=== PATIENT | male | born 1940 | race Caucasian/White ===

== ENCOUNTER → 2017-11-19 | Outpatient (CLI) | payer MEDICARE, OTHER ==
--- NOTE | 2017-11-19 09:55 | Diagnostic Imaging Report ---
PROCEDURE: CT abdomen and pelvis without contrast. TECHNIQUE: Multiple contiguous axial images were obtained through the abdomen and pelvis without the use of intravenous contrast. INDICATION: Hematuria. No prior studies are available for comparison. The lung bases are clear. No discrete liver mass is identified. There appears to be a very small stone within the gallbladder. Pancreas and spleen are unremarkable. No adrenal mass is detected. There is a 3 mm nonobstructing calculus upper pole right kidney. Tiny cortical calcification left kidney seen. There is no hydronephrosis. No ureteral calculi or ureteral dilatation is detected. No bladder calculi are identified. The aorta is heavily calcified but nonaneurysmal. The small and large bowel loops are normal caliber. The appendix is unremarkable. There is sigmoid diverticulosis without evidence of acute diverticulitis. Prostate is moderately enlarged. There is a small amount of gas within the bladder, perhaps owing to recent instrumentation. There is a fat-containing left inguinal hernia. Bony structures are nonacute. IMPRESSION: 1. Small nonobstructing right renal calculus. 2. Cholelithiasis. 3. Uncomplicated diverticulosis. 4. Minimal gas within the bladder, perhaps owing to instrumentation. Clinical correlation is recommended. 5. Fat containing left inguinal hernia. Dictated by: Dictated on workstation # [id number]
== END ==
LOC: RAD 08:20
PROVIDERS: ATTEND Urology
DX: N20.0 Calculus of kidney (principal); K80.20 Calculus of gallbladder without cholecystitis without obstruction; K57.30 Diverticulosis of large intestine without perforation or abscess without bleeding; K40.90 Unilateral inguinal hernia, without obstruction or gangrene, not specified as recurrent
CPT/HCPCS: 74176

== ENCOUNTER → 2019-07-14 | Outpatient (CLI) | payer MEDICARE, OTHER ==
[2019-07-14 17:49] LABS: BASOPHILS % (AUTO) 0 % (0-10); EOSINOPHILS # (AUTO) 0.1 10^3/uL (0.0-0.3); EOSINOPHILS % (AUTO) 1 % (0-10); HEMATOCRIT 39 % (40-54); HEMOGLOBIN 11.9 G/DL (13.3-17.7); LYMPHOCYTES # (AUTO) 1.8 X 10^3 (1.0-4.0); LYMPHOCYTES % (AUTO) 24 % (12-44); MEAN CORPUSCULAR HEMOGLOBIN 24 PG (25-34); MEAN CORPUSCULAR HGB CONC 31 G/DL (32-36); MEAN CORPUSCULAR VOLUME 79 FL (80-99); MEAN PLATELET VOLUME 11.3 FL (7.4-10.4); MONOCYTES # (AUTO) 0.8 X 10^3 (0.0-1.0); MONOCYTES % (AUTO) 11 % (0-12); NEUTROPHILS # (AUTO) 4.8 X 10^3 (1.8-7.8); NEUTROPHILS % (AUTO) 64 % (42-75); PLATELET COUNT 274 10^3/uL (130-400); RED CELL DISTRIBUTION WIDTH 22.5 % (10.0-14.5); WHITE BLOOD COUNT 7.5 10^3/uL (4.3-11.0)
[2019-07-14 18:03] LABS: ALBUMIN 3.8 GM/DL (3.2-4.5); BILIRUBIN,TOTAL 0.3 MG/DL (0.1-1.0); CALCIUM 8.8 MG/DL (8.5-10.1); CREATININE SERUM 1.67 MG/DL (0.60-1.30); POTASSIUM 4.8 MMOL/L (3.6-5.0); TOTAL PROTEIN 7.1 GM/DL (6.4-8.2)
== END ==
LOC: LAB 17:21
PROVIDERS: ATTEND Nurse Practitioner Family
DX: D64.9 Anemia, unspecified (principal); R53.83 Other fatigue; I25.10 Atherosclerotic heart disease of native coronary artery without angina pectoris; R43.9 Unspecified disturbances of smell and taste
CPT/HCPCS: 36415; 80053; 82728; 85025; 85379; 86141

== ENCOUNTER 2021-12-11 03:58 | Emergency (ER) | payer MEDICARE, OTHER ==
[~2021-12-11] VITALS: Ht 177.8 cm; Wt 80.2 kg
--- NOTE | 2021-12-11 04:03 | ED Chest Pain ---
General Stated Complaint: CP Source: patient (PT IS POOR / LIMITED HISTORIAN ABOUT PMH. ), EMS History of Present Illness Date Seen by Provider: Dec 11, 2021 Time Seen by Provider: 04:02 Initial Comments PT ARRIVES VIA [facility] FROM [facility], BYPASSING [facility] C/O CHEST PAIN THAT WOKE HIM UP AT 0230 PAIN IS IN RIGHT LOWER/LATERAL CHEST NO RADIATION OF PAIN NOTHING WORSENS OR IMPROVES PAIN HAS NOT TAKEN ANYTHING FOR PAIN EMS GAVE 324 MG ASPIRIN. AND FENTANYL AND PAIN IS GONE. + "COLD SWEATS" + SHORTNESS OF BREATH + NAUSEA, NO VOMITING NO SWELLING IN LEGS/ FEET OR PAIN IN CALVES NO DIZZINESS OR SYNCOPE PT HAS HAD CA X 3 AND STENTS X 7. LAST CA AND STENTS WERE 02/2021--DONE AT [facility] WAS HOSPITALIZED IN [place]BER 2021 FOR CHF STATES THESE SYMPTOMS ARE THE SAME WITH PRIOR HEART ATTACKS. PT HAS CHRONIC ATRIAL FIBRILLATION AND IS PRESCRIBED PLAVIX AND ASPIRIN PT DEVELOPED DIVERTICULITIS, AND WAS PRESCRIBED CIPRO AND FLAGYL 11/25/20, AND HAS BEEN OFF HIS PLAVIX AND ASPIRIN SINCE Wednesday12/07/21IN ORDER TO HAVE A COLONOSCOPY NEXT WEDNESDAY. HAS FREQUENT PROBLEMS WITH GI BLEEDING, AND IS CURRENTLY HAVING BLACK STOOLS. PT DENIES COUGH OR FEVER PT HAS COPD BUT DOES NOT HAVE HOME O2 PT QUIT SMOKING IN 1999, AND QUIT ALCOHOL USE ABOUT THAT TIME WELL PT HAS NOT HAD COVID OR FLU VACCINES NO PRIOR VISITS HERE PCP: DR. MARY ANN WITH [facility] IN [place] PROFESSOR OF PSYCHOLOGY: DR. VELÁSQUEZ WITH [facility] Allergies and Home Medications Allergies Coded Allergies: No Known Drug Allergies (Unverified , 12/11/21) Patient Home Medication List Albuterol Sulfate (Ventolin Hfa) 1 Puff Puff, (Reported) Entered as Reported by: LIBAN KELLEY on 12/11/21409 Last Action: New Order Carvedilol (Carvedilol) 12.5 Mg Tablet, (Reported) Entered as Reported by: LIBAN KELLEY on 12/11/21409 Last Action: New Order Clopidogrel Bisulfate (Clopidogrel) 75 Mg Tablet, (Reported) Entered as Reported by: LIBAN KELLEY on 12/11/21409 Last Action: New Order Levothyroxine Sodium (Levothyroxine Sodium) 88 Mcg Tablet, (Reported) Entered as Reported by: LIBAN KELLEY on 12/11/21409 Last Action: New Order Lisinopril (Lisinopril) 2.5 Mg Tablet, (Reported) Entered as Reported by: LIBAN KELLEY on 12/11/21409 Last Action: New Order Potassium Chloride (K-Tab ER) 10 Meq Tablet.er, (Reported) Entered as Reported by: LIBAN KELLEY on 12/11/21409 Last Action: New Order Torsemide (Torsemide) 20 Mg Tablet, (Reported) Entered as Reported by: LIBAN KELLEY on 12/11/21409 Last Action: New Order Review of Systems Review of Systems Constitutional: see HPI, diaphoresis EENTM: No Symptoms Reported Respiratory: See HPI, Shortness of Air Cardiovascular: See HPI, Chest Pain; Denies Edema; Irregular Heart Rate (PT HAS CHRONIC ATRIAL FIBRILLATION); Denies Lightheadedness, Denies Palpitations; Syncope Gastrointestinal: See HPI; Denies Abdominal Pain; Nausea, Rectal Bleeding (BLACK STOOLS); Denies Vomiting; Other (RECENT DIVERTICULITIS, NO COMPLAINTS REGARDING THAT ILLNESS AT THIS TIME. ) Genitourinary: No Symptoms Reported Musculoskeletal: no symptoms reported Skin: no symptoms reported Psychiatric/Neurological: No Symptoms Reported Endocrine: No Symptoms Reported Hematologic/Lymphatic: No Symptoms Reported Past Lwvrjji-Aqcpbt-Cqfnex Hx Patient Social History Tobacco Use?: Yes Tobacco type used: Cigarettes Smoking Status: Former Smoker Substance use?: No Alcohol Use?: Yes Past Medical History Surgeries: Yes Abdominal, Bowel Surgery, Cardiac, Coronary Stent, Pacemaker Respiratory: Yes COPD Cardiac: Yes (PACEMAKER; STENTS X 7) Atrial Fibrillation, Coronary Artery Disease, Heart Attack, High Cholesterol, Hypertension Neurological: No Genitourinary: No Gastrointestinal: Yes (COLON RESECTION FOR DIVERTICULITIS) Gastroesophageal Reflux, Chronic Constipation, Diverticulosis Musculoskeletal: No Endocrine: Yes Hypothyroidsim HEENT: No Cancer: No Psychosocial: No Integumentary: No Blood Disorders: No Family Medical History SOCIAL HISTORY: -SMOKED 1 PPD, QUIT 1999 -ETOH--HISTORY OF USE, QUIT AROUND 1999 -DENIES DRUG USE PAST SURGICAL HISTORY: -COLON RESECTION FOR DIVERTICULITIS -CARDIAC CATHS WITH STENTS X 7--LAST ONE 02/2021, PER PT-DONE AT [facility] Physical Exam Vital Signs Vital Signs - First Documented Capillary Refill : Height, Weight, BMI Height: '" Weight: lbs. oz. kg; BMI Method: General Appearance: No Apparent Distress, WD/WN Neck: Full Range of Motion, Normal Inspection, Non Tender, Supple; No Carotid Bruit, No JVD Respiratory: Chest Non Tender, Normal Breath Sounds, No Accessory Muscle Use, No Respiratory Distress Cardiovascular: No Edema, No JVD, No Murmur, Normal Peripheral Pulses, Irregularly Irregular Gastrointestinal: Normal Bowel Sounds, No Organomegaly, No Pulsatile Mass, Non Tender, Soft Extremity: Normal Capillary Refill, Normal Inspection, Normal Range of Motion, Non Tender, No Calf Tenderness, No Pedal Edema Neurologic/Psychiatric: Alert, Oriented x3, No Motor/Sensory Deficits, Normal 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, 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 Norm as Tested Skin: Normal Color Progress/Results/Core Measures Results/Orders Lab Results Laboratory Tests Test 12/11/21 04:10 12/11/21 04:19 Range/Units White Blood Count 7.0 4.3-11.0 10^3/uL Red Blood Count 3.31 L 4.30-5.52 10^6/uL Hemoglobin 9.8 L 13.3-17.7 g/dL Hematocrit 30 L 40-54 % Mean Corpuscular Volume 89 80-99 fL Mean Corpuscular Hemoglobin 30 25-34 pg Mean Corpuscular Hemoglobin Concent 33 32-36 g/dL Red Cell Distribution Width 14.6 H 10.0-14.5 % Platelet Count 226 130-400 10^3/uL Mean Platelet Volume 11.2 9.0-12.2 fL Immature Granulocyte % (Auto) 0 % Neutrophils (%) (Auto) 65 42-75 % Lymphocytes (%) (Auto) 18 12-44 % Monocytes (%) (Auto) 13 H 0-12 % Eosinophils (%) (Auto) 2 0-10 % Basophils (%) (Auto) 1 0-10 % Neutrophils # (Auto) 4.6 1.8-7.8 10^3/uL Lymphocytes # (Auto) 1.3 1.0-4.0 10^3/uL Monocytes # (Auto) 0.9 0.0-1.0 10^3/uL Eosinophils # (Auto) 0.2 0.0-0.3 10^3/uL Basophils # (Auto) 0.0 0.0-0.1 10^3/uL Immature Granulocyte # (Auto) 0.0 0.0-0.1 10^3/uL Erythrocyte Sedimentation Rate 23 0-30 MM/HR Prothrombin Time 15.3 H 12.2-14.7 SEC INR Comment 1.2 0.8-1.4 Activated Partial Thromboplast Time 32 24-35 SEC D-Dimer 1.19 H 0.00-0.49 UG/ML Sodium Level 138 135-145 MMOL/L Potassium Level 3.5 L 3.6-5.0 MMOL/L Chloride Level 103 98-107 MMOL/L Carbon Dioxide Level 25 21-32 MMOL/L Anion Gap 10 5-14 MMOL/L Blood Urea Nitrogen 30 H 7-18 MG/DL Creatinine 2.10 H 0.60-1.30 MG/DL Estimat Glomerular Filtration Rate 31 BUN/Creatinine Ratio 14 Glucose Level 100 70-105 MG/DL Calcium Level 8.2 L 8.5-10.1 MG/DL Corrected Calcium 8.8 8.5-10.1 MG/DL Magnesium Level 2.2 1.6-2.4 MG/DL Total Bilirubin 0.6 0.1-1.0 MG/DL Aspartate Amino Transf (AST/SGOT) 36 H 5-34 U/L Alanine Aminotransferase (ALT/SGPT) 19 0-55 U/L Alkaline Phosphatase 64 40-136 U/L Total Creatine Kinase 56 30-200 U/L Creatine Kinase MB 1.0 <6.6 NG/ML Myoglobin 81.3 10.0-92.0 NG/ML Troponin I < 0.028 <0.028 NG/ML C-Reactive Protein High Sensitivity 0.62 H 0.00-0.50 MG/DL B-Type Natriuretic Peptide 1176.9 H <100.0 PG/ML Total Protein 5.8 L 6.4-8.2 GM/DL Albumin 3.2 3.2-4.5 GM/DL Amylase Level 152 H 25-125 U/L Lipase 25 8-78 U/L Procalcitonin 0.05 <0.10 NG/ML Influenza Type A (RT-PCR) Not Detected Not Detecte Influenza Type B (RT-PCR) Not Detected Not Detecte SARS-CoV-2 RNA (RT-PCR) Not Detected Not Detecte My Orders Orders - LIBBY DIEHL DO Ekg Tracing (12/11/21 03:59) Cbc With Automated Diff (12/11/21 04:00) Magnesium (12/11/21 04:00) Chest 1 View, Ap/Pa Only (12/11/21 04:00) Ekg Tracing (12/11/21 04:00) Comprehensive Metabolic Panel (12/11/21 04:00) Myoglobin Serum (12/11/21 04:00) Protime With Inr (12/11/21 04:00) Partial Thromboplastin Time (12/11/21 04:00) O2 (12/11/21 04:00) Monitor-Rhythm Ecg Trace Only (12/11/21 04:00) Ed Iv/Invasive Line Start (12/11/21 04:00) Creatine Kinase (12/11/21 04:00) Creatine Kinase Mb (12/11/21 04:00) Lipase (12/11/21 04:00) Amylase (12/11/21 04:00) Bnp Lucrecia (12/11/21 04:00) Troponin I Lucrecia (12/11/21 04:00) Fibrin Degradation Products (12/11/21 04:15) Procalcitonin (Pct) (12/11/21 04:15) Hs C Reactive Protein (12/11/21 04:15) Erythrocyte Sedimentation Rate (12/11/21 04:15) Covid 19 Inhouse Test (12/11/21 04:15) Influenza A And B By Pcr (12/11/21 04:15) Isolation Central Supply Req (12/11/21 04:15) Furosemide Injection (Lasix Injection) (12/11/21 05:15) Medications Given in ED Current Medications Medications Dose Ordered Sig/Mahsa Route Start Time Stop Time Status Last Admin Dose Admin Furosemide 80 mg ONCE ONCE IVP 12/11/21 05:15 12/11/21 05:16 DC 12/11/21 05:15 80 MG Vital Signs/I&O 12/11/21 12/11/21 04:01 04:01 Temp 35.7 Pulse 86 Resp 16 B/P (MAP) 110/76 (87) Pulse Ox 99 99 O2 Delivery Nasal Cannula Nasal Cannula O2 Flow Rate 2.00 2.00 Progress Progress Note : Progress Note NO CHEST PAIN OR DYSPNEA OR SWEATS OR NAUSEA DURING ER STAY GIVEN LASIX FOR CHF. VITALS STABLE NO HYPOXIA NO FEVER NO HYPOTENSION NO TACHYCARDIA DURING ER STAY 0600--CARE TURNED OVER TO DR. GEORGE, TRANSFER IS PENDING--PT HAS BEEN ACCEPTED AND IS AWAITING EMS TRANSPORTATION Initial ECG Impression Date: Dec 11, 2021 Initial ECG Impression Time: 04:05 Initial ECG Rate: 89 Initial ECG Rhythm: A Fib/Flutter (WITH PVC'S. LOW VOLTAGE) Initial ECG Impression: Nonspecific Changes (INFERIOR AND ANTERIOR Q WAVES) Initial ECG Comparisson: No Previous ECG Available Diagnostic Imaging Comments CXR--CHF, CARDIOMEGALY--PENDING RADIOLOGIST REVIEW Reviewed: Reviewed by [facility] Departure Communication (Admissions) 0518--CALLED [facility] PT'S REQUEST. THEY WILL CALL BACK. 0540--SPOKE WITH DR. SIFUENTES ( ? SPELLING ? ), HOSPITALIST, ACCEPTS PT FOR ADMIT. Impression Primary Impression: Chest pain Additional Impressions: CHF (congestive heart failure) RECENT GI BLEEDING CAD WITH MULTIPLE STENTS Chronic atrial fibrillation Disposition: XFER SHT-TRM HOSP Condition: Stable Transfer Transfer Reason: Patient preference Transfer Facility: [facility] Method of Transfer: EMS Departure-Patient Inst. Referrals: SHAISTA CHAMBERLAIN MD (PCP/Family) Primary Care Physician LIBBY DIEHL DO Dec 11, 2021 04:03
[2021-12-11] MEDS ORDERED: RT-ALBUINH (04:10)
[2021-12-11] MEDS ORDERED: LISI2.5T13 (04:10)
[2021-12-11] MEDS ORDERED: LEVO88TA54 (04:10)
[2021-12-11] MEDS ORDERED: POTA10TA (04:10)
[2021-12-11] MEDS ORDERED: CLOP75TA28 (04:10)
[2021-12-11] MEDS ORDERED: TORS20TA3 (04:10)
[2021-12-11] MEDS ORDERED: CARV12.53 (04:10)
[2021-12-11 04:15] LABS: BASOPHILS % (AUTO) 1 % (0-10); EOSINOPHILS # (AUTO) 0.2 10^3/uL (0.0-0.3); EOSINOPHILS % (AUTO) 2 % (0-10); HEMATOCRIT 30 % (40-54); HEMOGLOBIN 9.8 g/dL (13.3-17.7); LYMPHOCYTES # (AUTO) 1.3 10^3/uL (1.0-4.0); LYMPHOCYTES % (AUTO) 18 % (12-44); MEAN CORPUSCULAR HEMOGLOBIN 30 pg (25-34); MEAN CORPUSCULAR HGB CONC 33 g/dL (32-36); MEAN CORPUSCULAR VOLUME 89 fL (80-99); MEAN PLATELET VOLUME 11.2 fL (9.0-12.2); MONOCYTES # (AUTO) 0.9 10^3/uL (0.0-1.0); MONOCYTES % (AUTO) 13 % (0-12); NEUTROPHILS # (AUTO) 4.6 10^3/uL (1.8-7.8); NEUTROPHILS % (AUTO) 65 % (42-75); PLATELET COUNT 226 10^3/uL (130-400)
[2021-12-11 04:38] LABS: INR 1.2 (0.8-1.4); PROTHROMBIN TIME PATIENT 15.3 SEC (12.2-14.7)
[2021-12-11 04:55] LABS: ALBUMIN 3.2 GM/DL (3.2-4.5); POTASSIUM 3.5 MMOL/L (3.6-5.0)
[2021-12-11 04:57] LABS: CALCIUM 8.2 MG/DL (8.5-10.1)
[2021-12-11 04:58] LABS: TOTAL PROTEIN 5.8 GM/DL (6.4-8.2)
[2021-12-11 04:59] LABS: BILIRUBIN,TOTAL 0.6 MG/DL (0.1-1.0)
[2021-12-11 05:01] LABS: CREATININE SERUM 2.1 MG/DL (0.60-1.30)
[2021-12-11 05:04] LABS: MAGNESIUM 2.2 MG/DL (1.6-2.4)
[2021-12-11] MEDS ORDERED: FUROSEMIDE 40 MG/4 ML INJ (LASIX) IVP ONE (05:15)
--- NOTE | 2021-12-11 06:29 | Diagnostic Imaging Report ---
INDICATION: CHF FINDINGS: Single view of the chest demonstrates cardiac enlargement with interstitial infiltrates. There is no pneumothorax or large effusion. Pacemaker stable. IMPRESSION: CHF Dictated by: Dictated on workstation # [id number]
[2021-12-11 09:06] VITALS: BP 134/64
== END 2021-12-11 09:06 | disposition short-term general hospital (02) ==
LOC: EDUNIT# 03:58 → ER 03:59
DX: I25.10 Atherosclerotic heart disease of native coronary artery without angina pectoris (principal); I11.0 Hypertensive heart disease with heart failure; I50.9 Heart failure, unspecified; I48.20 Chronic atrial fibrillation, unspecified; K92.2 Gastrointestinal hemorrhage, unspecified; Z87.19 Personal history of other diseases of the digestive system; Z87.891 Personal history of nicotine dependence; Z95.5 Presence of coronary angioplasty implant and graft; Z20.822 Contact with and (suspected) exposure to COVID-19; Z90.49 Acquired absence of other specified parts of digestive tract; Z79.02 Long term (current) use of antithrombotics/antiplatelets; Z79.82 Long term (current) use of aspirin
CPT/HCPCS: 36415; 71045; 80053; 82150; 82550; 82553; 83690; 83735; 83874; 83880; 84145; 84484; 85025; 85379; 85610; 85652; 85730; 86141; 87636; 93005; 93041